=== PATIENT | male | born 1980 | race Caucasian/White ===

== ENCOUNTER 2022-04-21 21:08 | Emergency (ER) | payer BC, OTHER ==
[~2022-04-21] VITALS: Ht 177.8 cm; Wt 113.4 kg
[~2022-04-21 21:08] MED LIST: DM/P295L17 PO
[2022-04-21] MEDS ORDERED: PHENYLEPHRINE HCL NASAL SPRAY 15 ML BOTTLE NS ONE ×2 (21:29→21:30)
[2022-04-21] MEDS ORDERED: TRANEXAMIC ACID 1,000 MG/10 ML VIAL ONE (21:29)
[2022-04-21] MEDS ORDERED: TRANEXAMIC ACID 1,000 MG/10 ML VIAL NS ONE (21:30)
--- NOTE | 2022-04-21 21:38 | NUR ---
BIBRA C/O EPISTAXIS X20 MINS. S/P RHINPLASTY ON FRIDAY. DENIES BLOOD THINNER USE. PT AWAKE AND ALERT BREATHING EVEN AND UNLABORED. ALL V/S WNL.
--- NOTE | 2022-04-21 21:39 | NUR ---
ORDERED MEDS ADMINISTERRED INTRANASALY AND NASAL CLAMP APPLIED PER MD ORDER
--- NOTE | 2022-04-21 22:13 | NUR ---
Patient discharged to home in stable condition. Written and verbal after care instructions given. Patient verbalizes understanding of instruction. Bleeding controlled and PT ambulatory with steady gait.
[2022-04-21 22:45] VITALS: BP 136/87
== END 2022-04-21 22:15 | disposition home or self-care (01) ==
LOC: ER 21:10
DX: R04.0 Epistaxis (principal); Z79.899 Other long term (current) drug therapy